=== PATIENT | male | born 1960 | race Caucasian/White ===

== ENCOUNTER 2016-10-21 13:15 | Emergency (ER) | payer MEDICARE ==
[2016-10-21] MEDS ORDERED: Zofran 4 MG/2 ML VIAL IV ONE (13:43)
[2016-10-21] MEDS ORDERED: MORPHINE SULFATE 4 MG INJ IV ONE ×2 (13:43→15:05)
--- NOTE | 2016-10-21 13:50 | ERPHSYRPT ---
- History of Present Illness Time Seen by Provider: 10/21/16 13:45 Source: patient, family Exam Limitations: other (patient is deaf) Patient Subjective Stated Complaint: turned to shut door on truck and fell, landed on left side, has abrasion to left elbow, pt was able to get up and drove home Triage Nursing Assessment: pt alert and moaning, states painful to take a deep breath, breath sounds heard, no other injury, resp easy,skin w/d Physician History: This is a 56-year-old white male with history of coronary artery disease hypercholesterolemia high blood pressure diabetes arthritis and anxiety who is deaf he is accompanied by his . He arrives with complaint of pain in his left lower anterior lateral ribs symptoms since 12:00. According the patient he fell when he was a getting out of his truck. He had no loss of consciousness has no neck pain he is having complaining of pain in his left anterior lateral ribs worse with breathing. Past medical history includes coronary artery disease, hypercholesterolemia high blood pressure diabetes arthritis anxiety Past surgical history includes bilateral hip replacement vasectomy. Social history patient denies tobacco alcohol or illicit drug use Occurred: this afternoon (12:00) Reason for Fall: lost balance, fell from height (fell from his truck) Injuries/Pain Location: chest (pain left anterior lateral ribs) Loss of Consciousness: no loss of consciousness Quality: aching, sharpness Severity of Pain-Max: moderate Severity of Pain-Current: moderate Modifying Factors: Improves With: movement, other (deep breathing) Associated Symptoms (Fall): chest pain (pain left lateral ribs with breathing and movement), extremity injury (patient states he landed on his left arm but minimal tenderness left arm), No abdominal pain, No back pain, No confusion, No headache, No lightheadedness, No muscle spasms, No nausea, No neck pain, No ringing in ears, No seizures, No shortness of breath, No slurred speech, No vision changes Allergies/Adverse Reactions: shellfish derived Allergy (Mild, Verified 10/24/15 15:27) Rash lisinopril Adverse Reaction (Mild, Verified 10/24/15 15:27) Cough acetaminophen [From [facility]] Adverse Reaction (Verified 10/21/16 13:31) hydrocodone [From [facility]] Adverse Reaction (Verified 10/21/16 13:31) Home Medications: Allopurinol 200 mg PO DAILY 04/07/13 [History] Amlodipine Besylate 5 mg [Norvasc 5 mg] 10 mg PO DAILY 04/07/13 [History] Aspirin EC 81 mg [Ecotrin 81 mg] 81 mg PO DAILY 04/07/13 [History] Citalopram Hydrobromide [Celexa] 20 mg PO DAILY 04/07/13 [History] Metformin HCl [Glucophage] 1,000 mg PO BID 04/07/13 [History] Metoprolol Succinate 100 mg [Toprol Xl 100 MG] 200 mg PO DAILY 04/07/13 [ History] Glimepiride 2 mg [Amaryl 2 MG] 2 mg PO DAILY 10/24/15 [History] Hydrochlorothiazide 12.5 mg PO DAILY 10/24/15 [History] Losartan Potassium [Cozaar] 25 mg PO DAILY 10/24/15 [History] Pramipexole Di-HCl [Mirapex] 0.125 mg PO HS 10/24/15 [History] Pravastatin Sodium [Pravachol] 40 mg PO DAILY 10/24/15 [History] Hx Tetanus, Diphtheria Vaccination/Date Given: Yes Hx Influenza Vaccination/Date Given: No Hx Pneumococcal Vaccination/Date Given: No Immunizations Up to Date: Yes - Review of Systems Constitutional: No Fever, No Chills Eyes: No Symptoms Ears, Nose, & Throat: No Symptoms Respiratory: Other (Pain left ribs worse with breathing), No Cough, No Cyanosis , No Dyspnea, No Dyspnea on Exertion ([place]OR[place]), No Stridor, No Wheezing Cardiac: Chest Pain (pain left ribs worse with breathing), No Edema, No Palpitations, No Syncope, No Orthopnea Abdominal/Gastrointestinal: No Abdominal Pain, No Nausea, No Vomiting, No Diarrhea Genitourinary Symptoms: No Dysuria Musculoskeletal: No Back Pain, No Neck Pain Skin: No Rash Neurological: No Dizziness, No Focal Weakness, No Sensory Changes Psychological: No Symptoms Endocrine: No Symptoms All Other Systems: Reviewed and Negative - Past Medical History Pertinent Past Medical History: Yes Neurological History: No Pertinent History ENT History: No Pertinent History Cardiac History: High Cholesterol, Hypertension Respiratory History: No Pertinent History Endocrine Medical History: Diabetes Type II Musculoskeletal History: Arthritis GI Medical History: No Pertinent History History: No Pertinent History Psycho-Social History: Anxiety Male Reproductive Disorders: No Pertinent History Other Medical History: deaf - Past Surgical History Past Surgical History: Yes Neuro Surgical History: No Pertinent History Cardiac: No Pertinent History Respiratory: No Pertinent History Gastrointestinal: No Pertinent History Genitourinary: No Pertinent History Musculoskeletal: Joint Replacement Male Surgical History: Vasectomy Other Surgical History: BOTH HIPS JOINT REPLACEMENT. LEFT HIP- . RIGHT HIP - Social History Smoking Status: Never smoker Exposure to second hand smoke: No Drug Use: none Patient Lives Alone: No - Nursing Vital Signs Nursing Vital Signs: Initial Vital Signs Temperature 97.4 F Temperature Source Oral Pulse Rate 68 Respiratory Rate 20 Blood Pressure [] 117/66 Pain Intensity 8 - Eugenio Coma Score Best Eye Response ([place]): (4) open spontaneously Best Verbal Response ([place]): (5) oriented Best Motor Response ([place]): (6) obeys commands Eugenio Total: 15 - Physical Exam General Appearance: moderate distress, alert Head Injury: no evidence of injury, No active bleeding, No Otto's Sign, No contusions, No ecchymosis Eye Exam: PERRL/EOMI ENT Exam: airway nml Neck Exam: normal inspection, No tenderness Respiratory/Chest Exam: chest tenderness (pain left lateral anterior ribs), normal breath sounds, rib tenderness, No respiratory distress, No ecchymosis, No crepitus, No decreased breath sounds, No rales, No rhonchi, No wheezing, No accessory muscle use, No subcutaneous emphysema, No palpable fracture, No paradoxical movements, No splinting Cardiovascular Exam: normal heart sounds, regular rate/rhythm Gastrointestinal Exam: soft, No tenderness, No distention, No guarding, No ecchymosis Back Exam: normal inspection, No vertebral tenderness Extremity Exam: normal inspection, normal range of motion, pelvis stable, No deformities Peripheral Pulses: dorsalis-pedis (R): 2+, dorsalis-pedis (L): 2+ Neurologic Exam: alert, oriented x 3, cooperative, sensation nml, No motor deficits Skin Exam: normal color, warm, dry SpO2 Interpretation: normal (96%) SpO2: 96 Oxygen Delivery: Room Air - Course Nursing assessment & vital signs reviewed: Yes - Radiology Exams Chest X-ray Interpretation: Discussed w/ radiologist (chest x-ray: Impression: non- acute underinflated chest with chronic features.) Ribs X-ray Interpretation: Discussed w/ radiologist (x-ray left ribs; Mild osteopenia , old seventh rib fracture, multilevel spinal degenerative changes, right paratracheal calcified nodes. No other bony, articular, or soft tissue abnormalities) Ordered Tests: Active Orders 24 hr Category Date Time Status IV Insertion STAT Care 10/21/16 13:43 Active CHEST 1 VIEW (PORTABLE) Stat Exams 10/21/16 13:45 Completed RIBS UNILATERAL Stat Exams 10/21/16 13:44 Completed Medication Summary Discontinued Medications Generic Name Dose Route Start Last Admin Trade Name Freq PRN Reason Stop Dose Admin Morphine Sulfate 4 mg 10/21/16 13:43 10/21/16 13:52 Morphine Sulfate 4 Mg Inj IV 10/21/16 13:44 4 mg STAT ONE Administration Morphine Sulfate Confirm 10/21/16 13:51 Morphine Sulfate 4 Mg Inj Administered 10/21/16 13:52 Dose 4 mg .ROUTE .STK-MED ONE Ondansetron HCl 4 mg 10/21/16 13:43 10/21/16 13:52 Zofran 4 Mg/2 Ml Vial IV 10/21/16 13:44 4 mg STAT ONE Administration Ondansetron HCl Confirm 10/21/16 13:51 Zofran 4 Mg/2 Ml Vial Administered 10/21/16 13:52 Dose 4 mg .ROUTE .STK-MED ONE - Progress Progress: improved Progress Note: 10/21/16 15:06 Patient with left rib pain after falling pain is with movement and palpation. X -ray of the left ribs no acute fractures there is an old seventh rib fracture multilevel level spinal degenerative changes and right paratracheal calcified nodes. No other bony, articular, or soft tissue abnormalities are noted. Chest x-ray impression nonacute under inflated chest with chronic features. Patient improved with still pain in his left ribs after 4 mg of morphine will give an additional 4 mg of morphine. Patient apparently unable to take [facility] will write for Percocet I have told his family that all narcotic analgesia as can have a side effect of nausea and vomiting. - Departure Time of Disposition: 15:07 Departure Disposition: Home Clinical Impression: Accidental fall Qualifiers: Encounter type: initial encounter Qualified Code(s): W19.XXXA - Unspecified fall, initial encounter Rib contusion Qualifiers: Encounter type: initial encounter Laterality: left Qualified Code(s): S20.212A - Contusion of left front wall of thorax, initial encounter Condition: Fair Critical Care Time: No Instructions: Contusion, Prevent Falls Additional Instructions: Return home. Percocet 5/325 #12 one orally every 4-6 hours as needed for pain. Cold packs to left ribs 24-48 hours. Avoid twisting strenuous pushing or pulling. Follow-up with your family Dr. symptoms are worse no better in 48 hours or persist longer than one week. Return for acute distress or for severe symptoms. Prescriptions: Oxycodone/APAP 5 mg/325 mg [Percocet Tablet 5/325Mg] 1 tab PO Q4-6HPRN PRN #12 tablet PRN Reason: Pain
[2016-10-21] MEDS ORDERED: MORPHINE SULFATE 4 MG INJ ONE ×2 (13:51→15:16)
[2016-10-21] MEDS ORDERED: Zofran 4 MG/2 ML VIAL ONE (13:51)
--- NOTE | 2016-10-21 14:56 | XRAY ---
Indication: Left mid axillary pain following fall. Comparison: August 03, 2016 Portable chest underinflated without focal infiltrate, consolidation, effusion, or pneumothorax. Heart is not enlarged. Stable right paratracheal calcified node. Bony thorax intact again with mild osteopenia and degenerative changes. Impression: Nonacute underinflated chest with chronic features.
--- NOTE | 2016-10-21 14:58 | XRAY ---
Indication: Left mid axillary pain following fall. Comparison: May 12, 2013 2 views of the left ribs demonstrates mild osteopenia, old 7th rib fracture, multilevel spinal degenerative changes, and right paratracheal calcified nodes. No other bony, articular, or soft tissue abnormalities.
[2016-10-21 16:13] VITALS: BP 118/70; PULSE 72; O2SAT 93
== END 2016-10-21 16:11 | disposition home or self-care (01) ==
LOC: ED 13:15
DX: S20.212A Contusion of left front wall of thorax, initial encounter (principal); S50.312A Abrasion of left elbow, initial encounter; I25.10 Atherosclerotic heart disease of native coronary artery without angina pectoris; E78.00 Pure hypercholesterolemia, unspecified; I10 Essential (primary) hypertension; F41.9 Anxiety disorder, unspecified; H91.3 Deaf nonspeaking, not elsewhere classified; W17.89XA Other fall from one level to another, initial encounter
CPT/HCPCS: 36000; 71010; 71100; 99282; J2270; J2405

== ENCOUNTER 2022-08-21 18:34 | Emergency (ER) | payer MEDICARE ==
[2022-08-21 20:13] VITALS: O2SAT 97
--- NOTE | 2022-08-21 22:42 | ERPHSYRPT ---
- History of Present Illness Time Seen by Provider: 08/21/22 19:56 Source: patient Exam Limitations: no limitations Patient Subjective Stated Complaint: pt [place] and hit his head. denies loss of consciousness. c/o head, neck and back pain, Triage Nursing Assessment: pt alert and oriented, answers questions approp with as language interpreter. c collar in place. respirations nonlabored. pt reports increased pain in back with deep inspiration. pt moves bilat upper and lower ext without diff. Physician History: Patient had a fall just prior to arrival. No other injuries. Patient complains of some headache, back pain, chest pain. Family states this was definitely a mechanical fall. There was no other injuries. States that he does trip frequently. Occurred: just prior to arrival Reason for Fall: tripped Injuries/Pain Location: head, chest, back Loss of Consciousness: no loss of consciousness Allergies/Adverse Reactions: shellfish derived Allergy (Mild, Verified 08/21/22 20:40) Rash lisinopril Adverse Reaction (Mild, Verified 08/21/22 20:40) Cough acetaminophen [From [facility]] Adverse Reaction (Verified 08/21/22 20:40) hydrocodone [From [facility]] Adverse Reaction (Verified 08/21/22 20:40) Home Medications: Allopurinol 200 mg PO DAILY 04/07/13 [History] Amlodipine Besylate 5 mg [Norvasc 5 mg] 10 mg PO DAILY 04/07/13 [History] Aspirin EC 81 mg [Ecotrin 81 mg] 81 mg PO DAILY 04/07/13 [History] Citalopram Hydrobromide [Celexa] 20 mg PO DAILY 04/07/13 [History] Metformin HCl [Glucophage] 1,000 mg PO BID 04/07/13 [History] Metoprolol Succinate 100 mg [Toprol Xl 100 MG] 200 mg PO DAILY 04/07/13 [History] Glimepiride 2 mg [Amaryl 2 MG] 2 mg PO DAILY 10/24/15 [History] Losartan Potassium [Cozaar] 25 mg PO DAILY 10/24/15 [History] Pramipexole Di-HCl [Mirapex] 0.125 mg PO HS 10/24/15 [History] Pravastatin Sodium [Pravachol] 40 mg PO DAILY 10/24/15 [History] hydroCHLOROthiazide [Hydrochlorothiazide] 12.5 mg PO DAILY 10/24/15 [History] Hx Tetanus, Diphtheria Vaccination/Date Given: Yes Hx Influenza Vaccination/Date Given: No Hx Pneumococcal Vaccination/Date Given: No Immunizations Up to Date: Yes Travel Risk - International Travel Have you traveled outside of the country in past 3 weeks: No - Coronavirus Screening Are you exhibiting any of the following symptoms?: No Close contact with a COVID-19 positive Pt in past 14-21 Days: No - Vaccine Status Have you recieved a Covid-19 vaccination: Yes Batter Mixer Helper: Unknown - Vaccination Dates Dates if Unknown: 2020 - Review of Systems Constitutional: No Fever, No Chills Eyes: No Symptoms Ears, Nose, & Throat: No Symptoms Respiratory: No Cough, No Dyspnea Cardiac: No Chest Pain, No Edema, No Syncope Abdominal/Gastrointestinal: No Abdominal Pain, No Nausea, No Vomiting, No Diarrhea Genitourinary Symptoms: No Dysuria Musculoskeletal: Back Pain, Other (Back pain, headache, upper back pain), No N marie Pain Skin: No Rash Neurological: No Dizziness, No Focal Weakness, No Sensory Changes Psychological: No Symptoms Endocrine: No Symptoms All Other Systems: Reviewed and Negative - Past Medical History Pertinent Past Medical History: Yes Neurological History: No Pertinent History ENT History: No Pertinent History Cardiac History: Coronary Artery Disease, High Cholesterol, Hypertension Respiratory History: No Pertinent History Endocrine Medical History: Diabetes Type II Musculoskeletal History: Arthritis GI Medical History: No Pertinent History History: No Pertinent History Psycho-Social History: Anxiety Male Reproductive Disorders: No Pertinent History Other Medical History: deaf, hx of rib fx lt. rt torn rotator cuff - Past Surgical History Past Surgical History: Yes Neuro Surgical History: No Pertinent History Cardiac: No Pertinent History Respiratory: No Pertinent History Gastrointestinal: Cholecystectomy Genitourinary: No Pertinent History Musculoskeletal: Joint Replacement Male Surgical History: Vasectomy Other Surgical History: 1999 left hip replaced,2009 and 2016 right hip replaced - Social History Smoking Status: Never smoker Exposure to second hand smoke: No Drug Use: none Patient Lives Alone: No - Nursing Vital Signs Nursing Vital Signs: Initial Vital Signs Temperature 97.3 F 08/21/22 20:05 Pulse Rate 76 08/21/22 20:05 Respiratory Rate 18 08/21/22 20:05 Blood Pressure 158/98 08/21/22 20:05 O2 Sat by Pulse Oximetry 95 08/21/22 20:05 Pain Scale Pain Intensity 4 - [place] Coma Score Best Eye Response ([place]): (4) open spontaneously Best Verbal Response ([place]): (5) oriented Best Motor Response ([place]): (6) obeys commands Eugenio Total: 15 - Physical Exam General Appearance: no apparent distress, alert Head Injury: no evidence of injury Eye Exam: PERRL/EOMI ENT Exam: airway nml Neck Exam: normal inspection, No tenderness Respiratory/Chest Exam: normal breath sounds, No chest tenderness, No respiratory distress Cardiovascular Exam: normal heart sounds, regular rate/rhythm Gastrointestinal Exam: soft, No tenderness, No distention, No guarding, No ecchymosis Back Exam: normal inspection, No vertebral tenderness Extremity Exam: normal inspection, normal range of motion, pelvis stable, No deformities Neurologic Exam: alert, oriented x 3, cooperative, sensation nml, No motor deficits Skin Exam: normal color, warm, dry SpO2 Interpretation: normal SpO2: 97 Comment: Motor: There is no pronator drift of out-stretched arms. Muscle bulk and tone are normal. Strength is full bilaterally. Reflexes: Reflexes are 2+ and symmetric at the biceps, triceps, knees, and ankles. Plantar responses are flexor. Sensory: Light touch sense are intact in bilateral upper and lower extremities. There is no sign of neglect. Coordination: Rapid alternating movements are intact. There is no dysmetria on [id number] and [id number]. There are no abnormal or extraneous movements. Romberg is absent. Gait/Stance: Posture is normal. Gait is steady with normal steps, base, arm swing, and turning. Heel and toe walking are normal. Tandem gait is normal. - Course Nursing assessment & vital signs reviewed: Yes Ordered Tests: Active Orders 24 hr Category Date Time Status ABDOMEN AND PELVIS W/0 CONTRAS [CT] Stat Exams 08/21/22 20:11 Taken CERVICAL SPINE WO CONTRAST [CT] Stat Exams 08/21/22 20:10 Taken CHEST WITHOUT CONTRAST [CT] Stat Exams 08/21/22 20:10 Taken HEAD WITHOUT CONTRAST [CT] Stat Exams 08/21/22 20:10 Taken - Progress Progress: improved Progress Note: 08/22/22 00:19 Normal neurological exam. We did obtain a head CT, CT C-spine, chest abdomen pelvis without contrast. This returned negative without acute injuries. Plan for discharge home. No other abnormalities. I did discuss risks of a concussion with the patient. We will follow-up with PCP. - Departure Departure Disposition: Home Clinical Impression: Fall Condition: Stable Critical Care Time: No Referrals: GARLAND HARDY [Primary Care Provider] - Follow up/PCP as directed Instructions: Preventing Falls in Older Adults
[2022-08-21 23:00] VITALS: BP 142/92; PULSE 72
--- NOTE | 2022-08-26 09:31 | XRAY ---
Indication: Pain following fall. Multiple contiguous axial images obtained through the cervical spine. Sagittal and coronal reformatted images obtained. Comparison: None Axial images negative for acute fracture, suspicious bony lesions, or spinal canal stenosis. Minimal/mild C4-C6 degenerative endplate spurring and mild/moderate multilevel bilateral degenerative facet hypertrophy. Sagittal and coronal reformatted images demonstrates normal alignment. C5-C6 disc space narrowing. No acute compression fracture, subluxation, or jumped facet. Normal appearing craniocervical junction. Visualized noncontrasted soft tissues are unremarkable. Impression: Multilevel generative changes. Otherwise negative CT cervical spine.
--- NOTE | 2022-08-26 09:31 | XRAY ---
Indication: Pain following fall. Multiple contiguous axial images obtained through the head without contrast. Comparison: None Age-appropriate global atrophy. No acute intracranial hemorrhage, abnormal extra-axial fluid collection, or mass effect. Fourth ventricle is midline without hydrocephalus. Benavides-white matter differentiation preserved. Bony calvarium intact. Paranasal sinuses and mastoid air cells are clear. Impression: Negative CT head without contrast exam.
--- NOTE | 2022-08-26 09:31 | XRAY ---
Indication: Pain following fall. Multiple contiguous axial images obtained through the chest without contrast. Comparison: April 07, 2013 Lungs inflated and clear again with incidental right apical calcified granuloma. Heart not enlarged. Aorta is normal in course and caliber. Stable small distal paratracheal and tiny right hilar calcified nodes. No pathologic mediastinal lymphadenopathy. Bony thorax intact with mild reactive changes throughout the spine. CT abdomen/pelvis reported separately. Impression: Again old granulomatous disease. Remaining CT chest without contrast exam is again negative.
--- NOTE | 2022-08-26 09:32 | XRAY ---
Indication: Pain following fall. Multiple contiguous axial images obtained through the abdomen and pelvis without contrast. Comparison: January 02, 2018 CT chest reported separately. Again extreme beam artifact from bilateral hip prostheses limits exam. Noncontrasted stomach and bowel loops nonobstructed. The remains sigmoid diverticulosis without diverticulitis. Interval cholecystectomy. No free fluid/air. Again fatty liver and left renal parapelvic cysts. Remaining liver, pancreas, spleen, adrenal glands, kidneys, ureters, and lateral are unremarkable for noncontrast exam. There remains mild aortoiliac calcifications without AAA. Osseous structures intact again with mild degenerative changes throughout the spine. Stable moderate-sized right inguinal hernia again with herniated omental fat and loop of small bowel. Impression: 1. Pelvis again limited by extreme beam artifact from bilateral total hip arthroplasty. 2. Again fatty liver, sigmoid diverticulosis, left renal parapelvic cysts, right inguinal hernia with herniated omental fat/bowel loop, arteriosclerotic disease, and degenerative spondylosis. 3. Remaining CT abdomen/pelvis without contrast exam is negative.
== END 2022-08-21 23:07 | disposition home or self-care (01) ==
LOC: ED 18:34
DX: Z04.3 Encounter for examination and observation following other accident (principal); R51.9 Headache, unspecified; M54.9 Dorsalgia, unspecified; R07.9 Chest pain, unspecified; E78.5 Hyperlipidemia, unspecified; I10 Essential (primary) hypertension; E11.9 Type 2 diabetes mellitus without complications; Z79.84 Long term (current) use of oral hypoglycemic drugs; Z79.899 Other long term (current) drug therapy
CPT/HCPCS: 70450; 71250; 72125; 74176; 99283